=== PATIENT | female | born 1960 ===

== ENCOUNTER 2022-04-24 21:04 | Emergency (ER) | payer OTHER ==
[~2022-04-24] VITALS: Ht 152.4 cm; Wt 75.7 kg
[2022-04-24] MEDS ORDERED: COZAAR100 MG PO (21:31)
[2022-04-24] MEDS ORDERED: TENORMIN100 M1 PO (21:31)
[2022-04-24] MEDS ORDERED: GLUMETZA500 MG PO (21:31)
== END 2022-04-24 22:25 | disposition home or self-care (01) ==
LOC: ER 21:04
DX: M79.604 Pain in right leg (principal); M79.605 Pain in left leg; R51.9 Headache, unspecified; E11.9 Type 2 diabetes mellitus without complications; Z79.84 Long term (current) use of oral hypoglycemic drugs; I10 Essential (primary) hypertension